=== PATIENT | male | born 1985 ===

== ENCOUNTER 2022-05-07 06:40 | Day surgery (SDC) | payer OTHER | END 2022-05-08 01:23 | disposition home or self-care (01) | LOC: CIR.AMB 06:40 | PROVIDERS: ATTEND Surgery | DX: K40.90 Unilateral inguinal hernia, without obstruction or gangrene, not specified as recurrent (principal); D17.0 Benign lipomatous neoplasm of skin and subcutaneous tissue of head, face and neck; L72.0 Epidermal cyst; Z20.822 Contact with and (suspected) exposure to COVID-19; Z86.16 Personal history of COVID-19; R73.03 Prediabetes | CPT/HCPCS: 49650; 21014; C1781 ==